=== PATIENT | female | born 1950 | race Caucasian/White ===

== ENCOUNTER 2019-03-11 07:00 | Outpatient (CLI) | payer MEDICARE, OTHER | END 2019-03-11 07:05 | LOC: LAB 07:00 | PROVIDERS: ATTEND Family Medicine | DX: I25.10 Atherosclerotic heart disease of native coronary artery without angina pectoris (principal) | CPT/HCPCS: 36415; 85610; P9603 ==

== ENCOUNTER 2019-03-16 17:00 | Outpatient (CLI) | payer MEDICARE, OTHER | END 2019-03-16 17:05 | LOC: LAB 17:00 | PROVIDERS: ATTEND Family Medicine | DX: I50.9 Heart failure, unspecified (principal); N18.3 Chronic kidney disease, stage 3 (moderate) | CPT/HCPCS: 36415; 85610 ==

== ENCOUNTER 2019-03-23 16:30 | Outpatient (CLI) | payer MEDICARE, OTHER | END 2019-03-23 16:35 | LOC: LAB 16:30 | PROVIDERS: ATTEND Family Medicine | DX: I25.10 Atherosclerotic heart disease of native coronary artery without angina pectoris (principal); I50.9 Heart failure, unspecified | CPT/HCPCS: 85610 ==